=== PATIENT | female | born 1960 | race Caucasian/White ===

== ENCOUNTER 2018-05-14 16:30 | Emergency (ER) | payer BC ==
[2018-05-14 16:42] VITALS: BP 156/98
[2018-05-14] MEDS ORDERED: Sodium Chloride 0.9% 10 ML Syringe FLUSH PRN (17:25)
[2018-05-14] MEDS ORDERED: Albuterol/Ipratropium 3.0-0.5 MG/3 ML Neb Soln NEB ONE (17:26)
[2018-05-14] MEDS ORDERED: Sodium Chloride 0.9% 1,000 ML IV SCH (17:30)
[2018-05-14] MEDS ORDERED: HYDROmorphone 1 MG/ML Syringe IVPUSH ONE (17:36)
--- NOTE | 2018-05-14 17:40 | EDM.PDOC ---
<Isma Valladares - Last Filed: 05/14/18 17:28> ED HPI GENERAL MEDICAL PROBLEM - General Chief Complaint: General Stated Complaint: INF A & DYDRATED Time Seen by Provider: 05/14/18 16:57 Source of Information: Reports: Patient, Family () History Limitations: Reports: No Limitations - History of Present Illness INITIAL COMMENTS - FREE TEXT/NARRATIVE: Pt began not feeling well this past Tuesday 05/09 with body aches, chills, and general feeling of malaise. She was seen at her primary clinic where she had rapid influenza which was positive and rapid strep which was negative. Over the past few days she has had decreased fluid intake due to extensive bed rest and her symptoms seem to have worsened in severity and include productive cough with moderate amount of green/yellow/brown sputum, rhinorrhea, mild shortness of breath, lightheadedness, weakness, malaise, body aches, headache. She has also experienced an episode of near syncope with associated feeling of warmth and diaphoresis after a warm bath that only lasted a few seconds. She also had one unrelated episode of pleuritic chest pain that was not associated with shortness of breath, palpitations, or syncopal features. She has not taken any medications to relive her symptoms. She denies any current chest pain, palpitations, abdominal pain, nausea, and vomiting. Onset: Gradual Onset Date: 04/18/18 Duration: Getting Worse Location: Reports: Generalized Severity: Moderate Generalized Pain Score (Numeric/FACES): 5 - Related Data Allergies Allergy/AdvReac Type Severity Reaction Status Date / Time nalbuphine [From Nubain] Allergy Other Verified 05/14/18 16:42 trazodone Allergy Dizziness Verified 05/14/18 16:42 Home Meds: Home Meds Acetaminophen/HYDROcodone [[place] 325-5 MG] 1 tab PO Q4H PRN #15 tablet 03/14/16 [Rx] LORazepam 0.5 mg PO ASDIRECTED PRN 03/14/16 [History] busPIRone [Buspar] 7.5 mg PO BID 03/14/16 [History] Amitriptyline [Elavil] 10 mg PO DAILY 05/14/18 [History] DULoxetine HCl [Duloxetine HCl] 20 mg PO DAILY 05/14/18 [History] Past Medical History Respiratory History: Reports: Other (See Below) Other Respiratory History: reactive airway precipitated by cold [employer] History: Reports: Psychiatric History: Reports: Anxiety - Infectious Disease History Infectious Disease History: Reports: Chicken Pox - Past Surgical History GI Surgical History: Reports: Other (See Below) Female Surgical History: Reports: Hysterectomy, Other (See Below) Social & Family History - Caffeine Use Caffeine Use: Reports: Coffee ED ROS GENERAL - Review of Systems Review Of Systems: See Below Constitutional: Reports: Chills, Malaise, Fatigue, Night Sweats, Diaphoresis, Decreased Appetite HEENT: Reports: Rhinitis, Other (Nasal drainage). Denies: Throat Swelling Respiratory: Reports: Shortness of Breath, Wheezing, Pleuritic Chest Pain, Cough , Sputum Cardiovascular: Reports: Chest Pain (see hpi), Lightheadedness, Other ( presyncope, vasovagal). Denies: Edema, Palpitations Endocrine: Reports: No Symptoms GI/Abdominal: Reports: Decreased Appetite. Denies: Abdominal Pain, Constipation , Diarrhea, Difficulty Swallowing, Nausea, Vomiting : Reports: No Symptoms, Incontinence (chronic). Denies: Dysuria, Frequency, Pain Musculoskeletal: Reports: Other (generalized myalgia) Skin: Reports: No Symptoms Neurological: Reports: No Symptoms. Denies: Dizziness, Numbness, Paresthesia, Weakness Psychiatric: Reports: No Symptoms Hematologic/Lymphatic: Reports: No Symptoms Immunologic: Reports: No Symptoms ED EXAM, GENERAL - Physical Exam Exam: See Below Exam Limited By: No Limitations General Appearance: Alert, WD/WN, Obese, Other (general appearance of malaise) Eye Exam: Bilateral Eye: EOMI, Normal Inspection, PERRL Ears: Normal External Exam, Normal Canal, Hearing Grossly Normal, Normal TMs Ear Exam: Bilateral Ear: Auricle Normal, Canal Normal, TM normal Nose: Normal Inspection, Normal Mucosa, No Blood Throat/Mouth: Normal Inspection, Normal Lips, Normal Teeth, Normal Gums, Normal Oropharynx, Normal Voice, No Airway Compromise Head: Atraumatic, Normocephalic. No: Sinus Tenderness Neck: Normal Inspection, Non-Tender, Full Range of Motion, Lymphadenopathy (R). No: Tender Lateral Respiratory/Chest: No Respiratory Distress, Lungs Clear, Normal Breath Sounds, No Accessory Muscle Use, Chest Non-Tender Cardiovascular: Normal Peripheral Pulses, Regular Rate, Rhythm, No Edema, No Gallop, No JVD, No Murmur, No Rub Peripheral Pulses: 2+: Radial (L), Radial (R), Dorsalis Pedis (L), Dorsalis Pedis (R) GI/Abdominal: Normal Bowel Sounds, Soft, Non-Tender, No Organomegaly, No Distention, No Abnormal Bruit, No Mass (Female) Exam: Deferred Rectal (Female) Exam: Deferred Back Exam: Normal Inspection, Full Range of Motion, NT Extremities: Normal Inspection, Normal Range of Motion, Non-Tender, No Pedal Edema, Normal Capillary Refill, Leg Pain Neurological: Alert, Oriented, CN II-XII Intact, Normal Cognition, No Motor/ Sensory Deficits Psychiatric: Normal Mood, Flat Affect Skin Exam: Warm, Dry, Intact, Normal Color, No Rash Course - Vital Signs Last Recorded V/S: Last Vital Signs Temp 97.8 F 05/14/18 16:36 Pulse 94 05/14/18 16:36 Resp 18 05/14/18 16:36 BP 156/98 H 05/14/18 16:36 Pulse Ox 100 05/14/18 17:27 - Orders/Labs/Meds Orders: Active Orders 24 hr Category Date Time Status Cardiac Monitoring [RC] . DIRECTED Care 05/14/18 17:25 Active Peripheral IV Care [RC] . DIRECTED Care 05/14/18 17:26 Active RT Aerosol Therapy [RC] ASDIRECTED Care 05/14/18 17:27 Active Chest 1V Frontal [CR] Stat Exams 05/14/18 17:26 Taken Sodium Chloride 0.9% [Normal Saline] 1,000 ml Med 05/14/18 17:30 Active IV .BOLUS Sodium Chloride 0.9% [Saline Flush] Med 05/14/18 17:25 Active 10 ml FLUSH ASDIRECTED PRN Peripheral IV Insertion Adult [OM.PC] Stat Oth 05/14/18 17:25 Ordered Medication Orders Sodium Chloride (Normal Saline) 1,000 mls @ 1,000 mls/hr IV .BOLUS ARIEL Last Admin: 05/14/18 17:58 Dose: 1,000 mls/hr Sodium Chloride (Saline Flush) 10 ml FLUSH ASDIRECTED PRN PRN Reason: Keep Vein Open Last Admin: 05/14/18 17:59 Dose: 10 ml Labs: Laboratory Tests 05/14/18 05/14/18 Range/Units 17:55 17:55 WBC 6.18 (3.98-10.04) K/mm3 RBC 4.97 (3.98-5.22) M/mm3 Hgb 14.0 (11.2-15.7) gm/L Hct 43.6 (34.1-44.9) % MCV 87.7 (79.4-94.8) fl MCH 28.2 (25.6-32.2) pg MCHC 32.1 L (32.2-35.5) g/dl RDW Std Deviation 44.1 (36.4-46.3) fL Plt Count 384 H (182-369) K/mm3 MPV 8.7 L (9.4-12.3) fl Neut % (Auto) 68.1 (34.0-71.1) % Lymph % (Auto) 23.1 (19.3-51.7) % [place]ven % (Auto) 7.3 (4.7-12.5) % Eos % (Auto) 0.8 (0.7-5.8) Baso % (Auto) 0.5 (0.1-1.2) % Neut # (Auto) 4.21 (1.56-6.13) K/mm3 Lymph # (Auto) 1.43 (1.18-3.74) K/mm3 Craven # (Auto) 0.45 H (0.24-0.36) K/mm3 Eos # (Auto) 0.05 (0.04-0.36) K/mm3 Baso # (Auto) 0.03 (0.01-0.08) K/mm3 Manual Slide Review Normal smear Sodium 139 (136-145) mEq/L Potassium 4.1 (3.5-5.1) mEq/L Chloride 104 (98-107) mEq/L Carbon Dioxide 27 (21-32) mEq/L Anion Gap 12.1 (5-15) BUN 18 (7-18) mg/dL Creatinine 0.7 (0.55-1.02) mg/dL Est Cr Clr Drug Dosing 87.27 mL/min Estimated GFR (MDRD) > 60 (>60) mL/min BUN/Creatinine Ratio 25.7 H (14-18) Glucose 102 (74-106) mg/dL Calcium 9.2 (8.5-10.1) mg/dL Total Bilirubin 0.2 (0.2-1.0) mg/dL AST 32 (15-37) U/L ALT 52 (14-59) U/L Alkaline Phosphatase 118 H (46-116) U/L Total Protein 7.6 (6.4-8.2) g/dl Albumin 3.8 (3.4-5.0) g/dl Globulin 3.8 gm/dL Albumin/Globulin Ratio 1.0 (1-2) Meds: Medications Generic Name Dose Route Start Last Admin Trade Name Freq PRN Reason Stop Dose Admin Sodium Chloride 1,000 mls @ 1,000 mls/hr 05/14/18 17:30 05/14/18 17:58 Normal Saline IV 1,000 mls/hr .BOLUS ARIEL Administration Sodium Chloride 10 ml 05/14/18 17:25 05/14/18 17:59 Saline Flush FLUSH 10 ml ASDIRECTED PRN Administration Keep Vein Open Discontinued Medications Generic Name Dose Route Start Last Admin Trade Name Freq PRN Reason Stop Dose Admin Albuterol/Ipratropium 3 ml 05/14/18 17:26 05/14/18 18:01 Duoneb 3.0-0.5 Mg/3 Ml NEB 05/14/18 17:27 3 ml ONETIME ONE Administration Hydromorphone HCl 0.5 mg 05/14/18 17:36 05/14/18 17:58 Dilaudid IVPUSH 05/14/18 17:37 0.5 mg ONETIME ONE Administration Ondansetron HCl 4 mg 05/14/18 18:03 05/14/18 18:16 Zofran IVPUSH 05/14/18 18:04 4 mg ONETIME ONE Administration Ondansetron HCl Confirm 05/14/18 18:05 05/14/18 18:09 Zofran Administered 05/14/18 18:06 Not Given Dose 4 mg .ROUTE .STK-MED ONE Departure - Departure Disposition: Home, Self-Care 01 Clinical Impression: Influenza A, Dehydration - Discharge Information Referrals: Vicky Smalls MD [Primary Care Provider] - Forms: ED Department Discharge Additional Instructions: Take your medication as prescribed. Drink plenty of fluids. Take motrin or tylenol for any fever. - My Orders Last 24 Hours: My Active Orders 05/14/18 17:25 Cardiac Monitoring [RC] . DIRECTED Sodium Chloride 0.9% [Saline Flush] 10 ml FLUSH ASDIRECTED PRN Peripheral IV Insertion Adult [OM.PC] Stat 05/14/18 17:26 Peripheral IV Care [RC] . DIRECTED Chest 1V Frontal [CR] Stat 05/14/18 17:27 RT Aerosol Therapy [RC] ASDIRECTED 05/14/18 17:30 Sodium Chloride 0.9% [Normal Saline] 1,000 ml IV .BOLUS - Assessment/Plan Last 24 Hours: My Active Orders 05/14/18 17:25 Cardiac Monitoring [RC] . DIRECTED Sodium Chloride 0.9% [Saline Flush] 10 ml FLUSH ASDIRECTED PRN Peripheral IV Insertion Adult [OM.PC] Stat 05/14/18 17:26 Peripheral IV Care [RC] . DIRECTED Chest 1V Frontal [CR] Stat 05/14/18 17:27 RT Aerosol Therapy [RC] ASDIRECTED 05/14/18 17:30 Sodium Chloride 0.9% [Normal Saline] 1,000 ml IV .BOLUS <Shawn Liu - Last Filed: 05/14/18 19:15> Course - Re-Assessments/Exams Free Text/Narrative Re-Assessment/Exam: 05/14/18 18:35 I examined the patient myself and I agree with Pepe's assessment and plan. I ordered an IV NS 1L bolus, zofran 4mg IV, dilaudid 0.5mg IV, labs, CXR and duoneb. Her CBC and CMP look good. Her CXR looks good. 05/14/18 19:13 She looks and feels better but I feel she will benefit from another liter. I will give her another liter and she can go after that. Departure - Departure Time of Disposition: 20:15 Condition: Good - Discharge Information *PRESCRIPTION DRUG MONITORING PROGRAM REVIEWED*: Not Applicable *COPY OF PRESCRIPTION DRUG MONITORING REPORT IN PATIENT MIKAL: Not Applicable
[2018-05-14] MEDS ORDERED: Ondansetron 4 MG/2 ML SDV IVPUSH ONE (18:03)
[2018-05-14] MEDS ORDERED: Ondansetron 4 MG/2 ML SDV ONE (18:05)
[2018-05-14] MEDS ORDERED: Sodium Chloride 0.9% 1,000 ML IV ONE (19:13)
--- NOTE | 2018-05-15 06:49 | CR ---
Chest: Portable view of the chest was obtained. Comparison: Prior chest x-ray not available. Heart size and mediastinum are within normal limits for portable technique. Lungs are clear. Bony structures are grossly intact. Impression: 1. Nothing acute is seen on portable chest x-ray. Diagnostic code #1
== END 2018-05-14 20:30 | disposition home or self-care (01) ==
LOC: JD.ED 16:30
DX: J10.1 Influenza due to other identified influenza virus with other respiratory manifestations (principal); F41.9 Anxiety disorder, unspecified; Z79.899 Other long term (current) drug therapy; Z88.8 Allergy status to other drugs, medicaments and biological substances
CPT/HCPCS: 36415; 71045; 80053; 85025; 94640; 96361; 96374; 96375; 99284; J1170; J2405; J7040; J7620-GY

== ENCOUNTER 2024-03-14 03:06 | Emergency (ER) | payer BC ==
[2024-03-14] MEDS: Sodium Chloride 0.9% 1,000 ML IV ONE (03:45)
[2024-03-14] MEDS: diphenhydrAMINE 50 MG/ML SDV IVPUSH ONE (03:45)
[2024-03-14] MEDS: Sodium Chloride 0.9% 10 ML Syringe FLUSH PRN (03:45)
[2024-03-14 04:00] LABS: BASOPHILS PERCENT AUTO 0.2 % (0.0-1.0); EOSINOPHILS PERCENT AUTO 0.1 % (0.0-6.0); HEMATOCRIT 53.6 % (37.0-47.0); HEMOGLOBIN 17.1 gm/dl (12.0-16.0); IMMATURE GRAN ABSOLUTE AUTO 0.03 K/mm3 (0.00-0.05); IMMATURE GRAN PERCENT AUTO 0.2 % (0.0-0.4); LYMPHOCYTES ABSOLUTE AUTO 0.5 K/mm3 (1.0-4.8); LYMPHOCYTES PERCENT AUTO 3.4 % (24.0-44.0); MEAN CORPUSCULAR HEMOGLOBIN 29.5 pg (28.0-32.0); MEAN CORPUSCULAR HGB CONC 31.9 g/dl (32.0-36.0); MEAN CORPUSCULAR VOLUME 92.4 fl (83.0-99.0); MONOCYTES ABSOLUTE AUTO 0.6 K/mm3 (0.0-0.8); MONOCYTES PERCENT AUTO 4.1 % (0.0-8.0); PLATELET COUNT,PLT 255 K/mm3 (150-400); WHITE BLOOD CELL COUNT,WBC 14.15 K/mm3 (3.9-11.3)
[2024-03-14 05:04] LABS: A/G RATIO 1.1 (1-2); ALBUMIN 4.1 g/dl (3.4-5.0); ANION GAP 18.4 (5-15); BILIRUBIN TOTAL 0.6 mg/dL (0.2-1.0); CALCIUM 10.1 mg/dL (8.5-10.1); EST CRCL DRUG DOSING (CG) 44.02 mL/min; MAGNESIUM 2.2 mg/dL (1.8-2.4); POTASSIUM,K 4.4 mEq/L (3.5-5.1); PROTEIN TOTAL,TP 7.9 g/dl (6.4-8.2)
[2024-03-14 06:04] VITALS: BP 118/69; PULSE 73
== END 2024-03-14 05:50 | disposition home or self-care (01) ==
LOC: JD.ED 03:06
DX: R11.2 Nausea with vomiting, unspecified (principal); R19.7 Diarrhea, unspecified; R55 Syncope and collapse; Z90.710 Acquired absence of both cervix and uterus; Z88.8 Allergy status to other drugs, medicaments and biological substances; Z79.899 Other long term (current) drug therapy
CPT/HCPCS: 36415; 71045; 80053; 83735; 84484; 85025; 87428; 93005; 96361; 96374; 99285; J1200; J7030; 93010; 99284

== ENCOUNTER 2024-12-01 06:45 | Day surgery (SDC) | payer BC ==
[~2024-12-01 06:45] MED LIST: Sodium Chloride 0.9% 10 ML Syringe FLUSH PRN; Sodium Chloride 0.9% 10 ML Syringe FLUSH SCH
[2024-12-01] MEDS: Lactated Ringers 1,000 ML IV SCH (07:00)
[2024-12-01] MEDS ORDERED: Ropivacaine 0.5% 5 MG/ML 30 ML SDV ONE (07:10)
[2024-12-01] MEDS ORDERED: propofoL 500 MG/50 ML 50 ML ONE (07:10)
[2024-12-01] MEDS ORDERED: Midazolam 1 MG/ML 2 ML SDV ONE (07:10)
[2024-12-01] MEDS ORDERED: dexmedeTOMIDine HCl 200 MCG/2 ML SDV ONE (07:10)
[2024-12-01] MEDS ORDERED: Ondansetron 4 MG/2 ML SDV ONE (07:37)
[2024-12-01] MEDS ORDERED: Dexamethasone 4 MG/ML 5 ML MDV ONE (07:37)
[2024-12-01] MEDS ORDERED: Propofol 200 MG/20 ML SDV ONE ×2 (08:30→08:49)
[2024-12-01] MEDS: EPINEPHrine 1 MG/ML SDV ONE (08:45)
[2024-12-01] MEDS ORDERED: fentaNYL 100 MCG/2 ML SDV IVPUSH PRN (09:31)
[2024-12-01] MEDS ORDERED: Ondansetron 4 MG/2 ML SDV IVPUSH PRN (09:31)
[2024-12-01] MEDS ORDERED: Ketorolac 30 MG/ML SDV IVPUSH PRN (09:31)
[2024-12-01] MEDS ORDERED: Acetaminophen/HYDROcodone 325-5 MG Tab PO PRN (09:43)
[2024-12-01 13:17] VITALS: BP 132/75; PULSE 78
== END 2024-12-01 12:45 | disposition home or self-care (01) ==
LOC: JD.SDS 06:45
PROVIDERS: ATTEND Orthopaedic Surgery
DX: M75.102 Unspecified rotator cuff tear or rupture of left shoulder, not specified as traumatic (principal); M25.812 Other specified joint disorders, left shoulder; M75.22 Bicipital tendinitis, left shoulder; Z88.8 Allergy status to other drugs, medicaments and biological substances; Z88.5 Allergy status to narcotic agent; Z79.899 Other long term (current) drug therapy
CPT/HCPCS: 29822; 29826; 29827; 64415; C1713; J0169; J0690; J1100; J2003; J2250; J2405; J2704; J2795; J7120; 01630; J3490